=== PATIENT | female | born 1930 | race Caucasian/White ===

== ENCOUNTER 2018-01-10 00:51 | Inpatient (IN) | payer BC, MEDICARE ==
--- NOTE | 2018-01-10 01:03 | ERNOTE ---
Hip Pain HPI - Narrative Date of Service: 01/10/18 - General Chief Complaints:: Right Hip PAIN Time Seen by Provider: 01/10/18 00:58 Source: patient, family - History of Present Illness Initial Comments: Patient is a 87-year-old female who presents to the emergency room complaining of right hip pain. Apparently she was feeding her bird when she slipped and fell on her right side hit right hip on the floor. She had difficulty ambulating afterwards afterwards so ambulance was called Timing/Duration: just prior to arrival, constant Hip Pain Location: hip (R) Method of Injury/Prior Injury: fell Associated Symptoms: denies symptoms - Immun/Allergies/Home Medications Allergies/Adverse Reactions: Allergies Allergy/AdvReac Type Severity Reaction Status Date / Time No Known Drug Allergies Allergy Verified 01/19/18 07:48 Home Medications: Ambulatory Orders Medication Instructions Recorded Glucosamine HCl 1,500 mg PO BID 12/12/13 Indapamide [Lozol] 2.5 mg PO DAILY 12/12/13 Potassium Chloride [Klor-Con 10] 10 meq PO BID 12/12/13 Meclizine HCl [Antivert] 25 mg PO QID #0 tab 12/13/13 Metoprolol Tartrate 50 mg PO BID 01/10/18 Multivitamin [One Daily Essential] 1 ea PO DAILY 01/10/18 Acetaminophen [Tylenol] 1,000 mg PO Q6H PRN #30 tab 01/13/18 Enoxaparin Sodium [Lovenox] 40 mg SC Q24H #28 disp.syrin 01/13/18 Sennosides/Docusate Sodium 2 tab PO HS tab 01/13/18 [Senokot-S] hydrocodone 5 mg-acetaminophen 325 1 tab PO Q4H PRN 30 Days #20 tab 01/18/18 mg tablet alprazolam 0.25 mg tablet 0.25 mg PO TID tab 01/19/18 aspirin 81 mg tablet,delayed 81 mg PO DAILY 01/19/18 release Review of Systems - Review of Systems All Other Systems: All systems neg except as marked Pain Exam - Physical Exam General Appearance: Present: WD/WN, no apparent distress Neck Exam: Present: non-tender, full range of motion, normal alignment Cardiovascular/Respiratory: Present: regular rate, rhythm, no M/R/G, normal peripheral pulses Gastrointestinal/Abdominal: Present: normal bowel sounds Back Exam: Present: normal inspection, no CVA tenderness, no vertebral tenderness Extremity Exam: Present: no evidence of injury, other - inspection of the right LOWER extremity is unremarkable for any deformity. Palpation of the posterior aspect of the right hip is significant for pain. She appears to have difficulty with flexion of the right hip. Log rolling is uncomfortable to painful. Neurologic: Present: enamel burner II-XII nml as tested, no motor/sensory deficits, alert , normal mood/affect, oriented x 3 Skin Exam: Present: normal color ED Progress - PROGRESS/REASSESSMENT Chief Complaint: Hip Pain/Injury Progress Note-Subjective: 01/10/18 02:39 CT scan of the right lower extremity reviewed. Dr. Hoff who recommended having the patient admitted by medicine and have him Dr. Ruiz consulted in the morning Will Plan on bringing the patient and felt admission - VITAL SIGNS Patient's Vital Signs:: I have reviewed the patient's vital signs. - RESULTS AND ORDERS Patient's Lab Results:: I have reviewed the patient's lab results. - CT/ULTRASOUND CT/Ultrasound Narrative: CT of the hip without IV contrast is consistent with acute simple right intertrochanteric fracture with mild intrafragment displacement - TRANSFER OF CARE Expected Disposition: Admit Departure - Departure Clinical Impression: Closed right hip fracture Qualifiers: Encounter type: subsequent encounter Disposition: Still a patient Condition: Stable
[2018-01-10] MEDS ORDERED: ceFAZolin SODIUM 1 GM VIAL IV PRN (06:00)
[2018-01-10] MEDS ORDERED: MORPHINE SULFATE 2 MG/ML DISP.SYRIN IV PRN ×2 (07:32→14:59)
--- NOTE | 2018-01-10 07:40 | CONS ---
HPI - General Date of Service: 01/10/18 Narrative: Joyce is an 87 yo F who lives independently at home who slipped and fell last night while feeding her birds. She landed directly on her R hip and was unable to bear weight. She was brought to the ED where CT scan revealed a right intertrochanteric femur fracture. She was admitted to the hospital and Orthopedics was consulted for management of her hip fracture. She complains of right hip and right shoulder pain this morning. She denies hitting her head or LOC. She denies chest pain or shortness of breath. Source: patient - History of Present Illness Allergies/Adverse Reactions: Allergies No Known Drug Allergies Allergy (Verified 12/12/13 13:23) Home Medications: Home Medications Medication Instructions Recorded Last Taken Acetaminophen [Tylenol] 1,000 mg PO TID 12/12/13 12/12/13 09:00 Aspirin 325 mg PO DAILY 12/12/13 01/09/18 Glucosamine HCl 1,500 mg PO BID 12/12/13 12/12/13 09:00 Indapamide [Lozol] 2.5 mg PO DAILY 12/12/13 01/09/18 Potassium Chloride [Klor-Con 10] 10 meq PO BID 12/12/13 01/09/18 Meclizine HCl [Antivert] 25 mg PO QID #0 tablet 12/13/13 01/09/18 Metoprolol Tartrate 50 mg PO BID 01/10/18 01/09/18 Multivitamin [One Daily Essential] 1 each PO DAILY 01/10/18 01/09/18 Procedures Cholecystectomy (03/02/07) Discission of secondary membrane [after cataract] (01/10/12) Esophagogastroduodenoscopy [EGD] with closed biopsy (05/28/03) Insertion of intraocular lens prosthesis at time of cataract extraction, one- stage (12/15/10) Intraoperative cholangiogram (03/02/07) Nonexcisional debridement of wound, infection or burn (04/07/07) Other dilation and curettage (06/07/01) Phacoemulsification and aspiration of cataract (12/15/10) Review of Systems - Review of Systems Narrative: As per HPI, otherwise negative. Physical Examination - Exam Narrative: Gen: A&Ox3, NAD Resp: breathing non-labored on room air MSK: tenderness diffusely about right hip, severe pain with any attempted ROM, no significant shortening or malrotation, SILT, distal cap refill brisk. CT scan reviewed which demonstrates a minimally displaced intertrochanteric femur fracture on the right. Vital Signs: Vital Signs - Last Taken Temp 37.1 C 01/10/18 06:45 Pulse 78 01/10/18 06:45 Resp 14 01/10/18 06:45 BP 152/76 H 01/10/18 06:45 Pulse Ox 97 01/10/18 06:45 O2 Oxygen Delivery Method Room Air - Results and Findings: Narrative: 87 yo F w/ right intertrochanteric femur fracture after a fall at home. - discussed treatment options with the patient including non-operative management with protected weight bearing and pain control vs surgical fixation. Given her activity level, relatively good health, and the high risk of morbidity/mortality associated with bedrest, I recommended surgical fixation with a cephalomedullary nail. I discussed the risks of surgery in detail with her including, but not limited to, infection, bleeding, neurovascular injury, malunion/nonunion, leg length discrepancy, malrotation, persistent pain, weakness, DVT/PE, and risks with anesthesia. After discussion, she wishes to proceed with surgery. - plan for closed vs open reduction with cephalomedullary nailing of R intertrochanteric femur fracture today pending Medicine clearance. - informed consent obtained - NPO - thorpe catheter - IV pain meds - pre-op plain films ordered - Assessments/Findings (1) Closed right hip fracture Problem: Acute Qualifiers: Encounter type: initial encounter Qualified Code(s): S72.001A - Fracture of unspecified part of neck of right femur, initial encounter for closed fracture
--- NOTE | 2018-01-10 08:00 | HP ---
Chief Complaint - Chief Complaint Date of Service: 01/10/18 Time of Service: 07:50 Chief Complaint: fall and right hi pain History of Present Illness: Joyce Mitchell, is an 87-year-old white female, patient of Dr. West, with previous medical history of hypertension breast cancer osteoporosis, who was admitted on 01/10/2018 because of the fall and a right hip pain. The patient was feeding her Birds/fish and when she turned around she almost stepped on her cat . She was tried to avoid stepping and so she lost her balance and fell on her right hip. She was not able to stand up because of pain. She also is complaining of right shoulder pain after the fall. She was brought to our emergency room where she was found to have a right intertrochanteric fracture. She denies any chest pain, shortness or breath, palpitation while climbing a flight of stairs. She denies any fever or chills, coughing, increased frequency of urination, or dysuria. She has had no anesthesia or postsurgical complications from her prior surgeries. Has had no history of DVT or pulmonary embolism in the past. Medical History (Last Reviewed 01/10/18 @ 10:45 by Armaan Lambert CRNA) Breast cancer Hypertension Osteoporosis Tuberculosis Surgical History: Surgical History (Last Reviewed 01/10/18 @ 10:45 by Armaan Lambert CRNA) H/O dilation and curettage H/O hernia repair H/O lumpectomy History of YAG laser capsulotomy of lens of left eye Hx of cholecystectomy History of appendectomy Social History: Patient Lives/Resources Home Utilized Occupation Retired Preferred Language Turkmen Do you have any pentecostalism or No cultural preference? Smoking Status Former smoker Have you smoked in the past 12 No months Do you dip or chew tobacco No Alcohol Use none Drug Use none Review Of Systems (GEN) - Review of Systems Generalized/Overall Review: Absent: Chills, Fever Respiratory: Absent: Cough, Shortness of Breath Cardiac: Absent: Chest Pain, Edema, Palpitations Abdominal: Absent: Nausea, Vomiting Genitourinary: Absent: Urgency, Frequency Musculoskeletal: Present: Joint Pain Neurological: Absent: Headache, Seizure Immunizations: IMMUNIZATION HX Immunizations Up to Date Yes History of Influenza Vaccine Yes Allergies/Adverse Reactions: Allergies Allergy/AdvReac Type Severity Reaction Status Date / Time No Known Drug Allergies Allergy Verified 12/12/13 13:23 Home Medications: HOME MEDICATIONS Acetaminophen [Tylenol] 1,000 mg PO TID 12/12/13 [Last Taken 12/12/13 09:00] Aspirin 325 mg PO DAILY 12/12/13 [Last Taken 01/09/18] Glucosamine HCl 1,500 mg PO BID 12/12/13 [Last Taken 12/12/13 09:00] Indapamide [Lozol] 2.5 mg PO DAILY 12/12/13 [Last Taken 01/09/18] Potassium Chloride [Klor-Con 10] 10 meq PO BID 12/12/13 [Last Taken 01/09/18] Meclizine HCl [Antivert] 25 mg PO QID #0 tablet 12/13/13 [Last Taken 01/09/18] Metoprolol Tartrate 50 mg PO BID 01/10/18 [Last Taken 01/09/18] Multivitamin [One Daily Essential] 1 each PO DAILY 01/10/18 [Last Taken 01/09/18 ] Exam - Exam Vital Signs: Vital Signs - Last Taken Temp 37.1 C 01/10/18 06:45 Pulse 78 01/10/18 06:45 Resp 14 01/10/18 06:45 BP 152/76 H 01/10/18 06:45 Pulse Ox 97 01/10/18 06:45 Constitutional: Present: Alert, Oriented x3, Cooperative ENT Exam: Present: hearing grossly normal Eye Exam: bilateral eye: normal inspection, PERRL, EOMI Neck: Present: supple Respiratory: Present: normal breath sounds, No rales, No wheezing Cardiovascular/Chest: Present: regular rate, rhythm, no JVD, no murmur Abdomen: Present: Normal bowel sounds, soft, nontender, nondistended Extremity: Present: no pedal edema, no calf tenderness Assessment/Plan - Assessment/Plan (1) Closed right hip fracture Assessment: Nondisplaced intertrochanteri fracture- for CRIF today. She may proceed with the anticipated orthopedic procedure. Her EKG shgowed NSR with T wave changes. Problem: Acute Qualifiers: Encounter type: initial encounter Qualified Code(s): S72.001A - Fracture of unspecified part of neck of right femur, initial encounter for closed fracture (2) Shoulder pain, right Assessment: r/o rotator cuff pathology. will get a shoulder xray. Problem: Acute Qualifiers: Chronicity: acute Qualified Code(s): M25.511 - Pain in right shoulder (3) Hypertension Assessment: continue with her home medications. Problem: Chronic Qualifiers: Hypertension type: essential hypertension Qualified Code(s): I10 - Essential (primary) hypertension
[2018-01-10 08:36] LABS: Hematocrit 39.2 % (37.0-47.0); Hemoglobin 13.2 gm/dL (12.5-16.0); Mean Cell Volume 92.7 fl (78-100); Mean Corpuscular Hemoglobin 31.2 pg (27-31); Mean Corpuscular Hgb Conc 33.7 g/dl (32-36); Mean Platelet Volume 9.2 fl (8-12.5); Neutrophil # 9.4 K/mm3 (1.3-6.0); Neutrophil % 82.9 % (42-75.0); Platelet Count 207 K/mm3 (150-450); Red Blood Count 4.23 M/mm3 (4.2-5.4); Red Cell Distribution Width 11.6 % (11.5-14.0); White Blood Count 11.3 K/mm3 (4.0-10.5)
[2018-01-10] MEDS ORDERED: ONDANSETRON HCL/PF 2 MG/ML VIAL IV PRN ×2 (08:36→14:59)
[2018-01-10 08:46] LABS: Prothrombin Time (Patient) 10.4 Seconds (9.0-11.0)
[2018-01-10 08:47] LABS: INR 1.04 INR (0.90-1.10)
[2018-01-10 08:51] LABS: Albumin * 3.8 gm/dl (3.4-5.0); Anion Gap 9.9 mmol/L (6.8-13.8); BUN/Creatinine Ratio 24.1 (9.0-21.6); Bilirubin, Total 0.7 mg/dL (0.0-1.1); Ca. Corrected For Albumin 9.6 mg/dL (8.4-10.2); Calcium * 9.8 mg/dL (7.9-10.9); Potassium 2.9 mmol/L (3.4-4.6); Total Protein 7.6 gm/dL (6.2-8.2)
[2018-01-10] MEDS: METOPROLOL TARTRATE 50 MG TABLET PO SCH ×2 (09:59→21:28)
--- NOTE | 2018-01-10 10:49 | ANES ---
Anesthesia Pre Procedure Eval Vitals/Labs: Last Vital Signs Temp 36.6 C 01/10/18 10:33 Pulse 73 01/10/18 10:33 Resp 13 01/10/18 10:33 BP 138/67 01/10/18 10:33 Pulse Ox 95 01/10/18 10:33 HOME MEDICATIONS Acetaminophen [Tylenol] 1,000 mg PO TID 12/12/13 [Last Taken 12/12/13 09:00] Aspirin 325 mg PO DAILY 12/12/13 [Last Taken 01/09/18] Glucosamine HCl 1,500 mg PO BID 12/12/13 [Last Taken 12/12/13 09:00] Indapamide [Lozol] 2.5 mg PO DAILY 12/12/13 [Last Taken 01/09/18] Potassium Chloride [Klor-Con 10] 10 meq PO BID 12/12/13 [Last Taken 01/09/18] Meclizine HCl [Antivert] 25 mg PO QID #0 tablet 12/13/13 [Last Taken 01/09/18] Metoprolol Tartrate 50 mg PO BID 01/10/18 [Last Taken 01/09/18] Multivitamin [One Daily Essential] 1 each PO DAILY 01/10/18 [Last Taken 01/09/18 ] Allergies/Adverse Reactions: Allergies Allergy/AdvReac Type Severity Reaction Status Date / Time No Known Drug Allergies Allergy Verified 12/12/13 13:23 - Planned Procedure Planned Procedure: RIGHT INTERTRONCHANTERIC FRACTURE Medication List Reviewed:: Yes Allergies Verified: Yes Medical History (Last Reviewed 01/10/18 @ 10:45 by Armaan Lambert CRNA) Breast cancer Hypertension Osteoporosis Tuberculosis Surgical History (Last Reviewed 01/10/18 @ 10:45 by Armaan Lambert CRNA) H/O dilation and curettage H/O hernia repair H/O lumpectomy History of YAG laser capsulotomy of lens of left eye Hx of cholecystectomy History of appendectomy - Family Anesthesia History Family History:: no untoward family reactions to anesthesia, no familial bleeding tendencies, no family history of clotting disorders, no family history of premature - Airway/Neck/Teeth Denture Type: Full- Upper Neck Exam: non-tender, full range of motion, normal alignment Mallampatti Score: 1 Thyromental (T-M) distance: > 6 cm Mandibulo Hyoid distance: > 3 cm - Respiratory Respiratory: chest non-tender, lungs clear, normal breath sounds Smoking Status: Never smoker Sleep Apnea currently treated: No Sleep Apnea by current assessment: No - Cardiovascular Patient History - Cardiac/Respiratory: Hypertension Tolerates Activity: Fair Heart Sounds: S1 & S2, Regular - Anesthesia Assessment and Plan ASA Class: PS, III Anesthesia Type Plan: Spinal Planned difficult intubation/equipment available: No
[2018-01-10] MEDS ORDERED: ceFAZolin SODIUM 1 GM in DEXTROSE 5 % IN WATER 100 ML IV ONE ×2 (13:23)
[2018-01-10] MEDS: RINGER'S SOLUTION,LACTATED 1,000 ML IV PRN ×2 (13:40→15:00)
[2018-01-10] MEDS ORDERED: ACETAMINOPHEN 500 MG TABLET PO PRN (14:59)
[2018-01-10] MEDS ORDERED: MAGNESIUM HYDROXIDE 30 ML UDC PO PRN (14:59)
[2018-01-10] MEDS ORDERED: MAG HYDROX/ALUMINUM HYD/SIMETH 30 ML UDC PO PRN (14:59)
--- NOTE | 2018-01-10 15:10 | OR ---
Operative Report - Dictated Report Narrative: Date: 01/10/2018 Surgeon: Masoud Phipps M.D. [employer] Unit Sales Leader: Demarco Rodriguez PA-C Preoperative diagnosis: Right Intertrochanteric femur fracture Postoperative diagnosis: Right Intertrochanteric femur fracture Operations and procedures: 1. Closed reduction, cephalo-medullary fixation right intertrochanteric femur fracture 2. Intraoperative interpretation of radiographs Anesthesia: Spinal Specimens: None Estimated blood loss: 200 Milliliters Retained implants: [employer] Trigen InterTAN 130 degree size 11.5 mm by 20 centimeter nail with 105 millimeter lag screw and distal locking screw Complications: None Indications for procedure: Joyce is an 87-year-old female who lives independently who injured the right leg after after tripping and falling at home trying to avoid stepping on her cat. They were admitted to the hospital after being evaluated in the emergency department. Once the medical provider felt that they were stable for surgical treatment, the risks and benefits alternatives were discussed. The risks of , blood clots, bleeding, infection, nerve/tendon/blood vessel injury, malunion, nonunion, failure of implants, painful implants, arthrosis, and need for additional procedures were discussed. The extremity was marked and consent was obtained on the floor. Procedure: After marking the operative extremity on the floor, the patient was taken to the operating room. A timeout was performed. IV antibiotics consisting of 1 g of Ancef were administered. A spinal anesthetic was induced by anesthesia, and the patient was then placed onto a fracture table with a well-padded perineal post. The non-operative leg was placed in a well-padded well leg watson in lithotomy position with an SCD on the leg. The operative leg was placed in a well-padded traction boot. Longitudinal traction, internal rotation, flexion, and adduction were utilized in order to reduce the fracture. Preliminary images were attained utilizing C-arm in both the AP and lateral views. This confirmed that we had obtained adequate visualization of the fracture as well as reduction. Next the hip was then prepped and draped in a standard sterile fashion. Next, the guidewire was placed percutaneously proximal to the greater trochanter to lg a starting point at the tip of the greater trochanter centered on the lateral view. This was advanced down to the level below the lesser trochanter. A scalpel was utilized to dissect down to the greater trochanter in order to lace the soft tissue protector down to bone. The entry reamer was then advanced down the proximal femur to the level of the lesser trochanter. A long ball-tipped guidewire was advanced down the intramedullary canal. A series of reamers up to 13 mm was passed down the canal past the isthmus to ensure that we could fit a 11.5 mm nail. The above nail was then selected and impacted into place. The outrigger was utilized in order to confirm the appropriate depth of the nail. Using the alignment device on the outrigger, a govind incision was made over the lateral femur. Sharp dissection was carried through the iliotibial band down to the proximal femur. The guidewire was was placed into the femoral head in a center center position on AP and lateral views. A tip apex distance less than 25 mm combined was obtained. Once we felt that we had placed the guidewire in the appropriate position, it was measured and drilled to the appropriate depth. The lag screw was then secured in place ensuring that we were within the confines of the bone. Once it was felt we had adequately stabilized the intertrochanteric fracture, the distal interlocking screw was placed in a static position confirmed to be the appropriate length and within the nail on both AP and lateral views. The nail was secured allowing for controlled compression and the outrigger was removed. The wounds were then thoroughly irrigated. Final images were obtained. The hip was placed through range of motion and showed no crepitance. The deep fascia was closed with 0 Vicryl, the subcutaneous tissue with 3-0 Vicryl, and the skin was closed with kym. Sterile dressings of Xeroform, 4 x 4s, and tegaderm were applied. All sponge, sharp, and instrument counts were correct prior to closing the wounds. The patient was then awoken and transferred to the postanesthesia care unit in stable condition.
--- NOTE | 2018-01-10 16:12 | ANES ---
Post Anesthesia Discharge - Transfer of Care Transfer of Care handoff given to nurse: Yes - Discharge from PACU Discharge from PACU when meets criteria: Yes - Discharge to ASU Discharge to ASU-no complications/pt stable: Yes
--- NOTE | 2018-01-10 16:12 | ANES ---
Post Anesthesia Assessment - Vital Signs Vitals: Last Vital Signs Temp 36.6 C 01/10/18 15:59 Pulse 67 01/10/18 15:59 Resp 16 01/10/18 15:59 BP 104/66 01/10/18 15:59 Pulse Ox 97 01/10/18 15:59 Airway Patency: Normal - Mental Status Level Of Consciousness: Awake - Pain Level Pain Score: 0 - N/V Assessment Nausea/Vomiting Presence: None Dehydration:: No
[2018-01-10] MEDS: HYDROcodone/ACETAMINOPHEN 1 EACH TABLET PO PRN (19:57)
[2018-01-10] MEDS: NORMAL SALINE 1,000 ML IV PRN (21:21)
[2018-01-10] MEDS: SENNOSIDES/DOCUSATE SODIUM 1 TAB TABLET PO SCH (21:26)
[2018-01-10] MEDS: ceFAZolin SODIUM 1 GM in DEXTROSE 5 % IN WATER 100 ML IV SCH ×2 (21:27)
[2018-01-11] MEDS: ceFAZolin SODIUM 1 GM in DEXTROSE 5 % IN WATER 100 ML IV SCH ×4 (05:15→13:50)
[2018-01-11] MEDS: HYDROcodone/ACETAMINOPHEN 1 EACH TABLET PO PRN ×3 (05:24→17:34)
[2018-01-11 05:32] LABS: Hematocrit 26.4 % (37.0-47.0); Hemoglobin 8.6 gm/dL (12.5-16.0); Mean Cell Volume 95.7 fl (78-100); Mean Corpuscular Hemoglobin 31.2 pg (27-31); Mean Corpuscular Hgb Conc 32.6 g/dl (32-36); Mean Platelet Volume 9.2 fl (8-12.5); Platelet Count 152 K/mm3 (150-450); Red Blood Count 2.76 M/mm3 (4.2-5.4); Red Cell Distribution Width 11.9 % (11.5-14.0); White Blood Count 9.5 K/mm3 (4.0-10.5)
[2018-01-11 05:41] LABS: Anion Gap 5.3 mmol/L (6.8-13.8); BUN/Creatinine Ratio 18.6 (9.0-21.6); Calcium * 8.5 mg/dL (7.9-10.9); Carbon Dioxide 32.6 mmol/L (24-32.6); Estimated Creat Clear 42.3; Potassium 2.9 mmol/L (3.4-4.6)
[2018-01-11] MEDS ORDERED: NORMAL SALINE 250 ML IV ONE (08:21)
[2018-01-11] MEDS: METOPROLOL TARTRATE 50 MG TABLET PO SCH ×2 (08:46→20:51)
--- NOTE | 2018-01-11 09:07 | PN ---
Subjective - Date and Time Seen Date: 01/11/18 Time: 08:30 Subjective Narrative: Patient reports no acute events. She states she has not been up out of bed. She states her pain will well controlled. Objective - Vitals Vitals: Last Vital Signs Temp 36.8 C 01/11/18 07:03 Pulse 98 01/11/18 08:46 Resp 16 01/11/18 07:03 BP 82/44 L 01/11/18 08:46 Pulse Ox 98 01/11/18 07:03 - Abnormal Lab Findings Abnormal Lab Findings: Abnormal Lab Results 01/11/18 01/11/18 Range/Units 05:15 05:15 RBC 2.76 L (4.2-5.4) M/mm3 Hgb 8.6 L (12.5-16.0) gm/dL Hct 26.4 L (37.0-47.0) % MCH 31.2 H (27-31) pg Potassium 2.9 L (3.4-4.6) mmol/L Anion Gap 5.3 L (6.8-13.8) mmol/L Random Glucose 128 H (70-110) mg/dL - Exam Constitutional: Present: Alert, Cooperative, No distress Respiratory: Present: no respiratory distress Extremity: Present: other - RUE--> bandages mild blood tinged, no significant changes from post-op, SILT, dorsal pedis pulse 2+, PF/DF 4+/5, mild ttp diffusely over right hip Eye contact: Present: cooperative Cauti Physician Documentation - Urinary Catheter Management Urethral (Loaiza) Date of Insertion: 01/10/18 Time of Insertion: 03:18 Date of Removal: 01/11/18 Time of Removal: 08:30 Assessment/Plan Plan Narrative: -87 y/o female post-op day#1 s/p cephalmedullary nailing of right intertrochanteric femur fracture - WBAT with assistance PRN - PT/OT progress as tolerated - PO diet as tolerated - PO pain medication PRN - Maintain post-op dressing in place, monitor drainage - DVT prophy: lovenox, SCDs in bed, latisha hose - Chronic medical conditions per medicine - Hgb 8.6 continue to monitor - Dispo: progress as tolerated, when all goal met and patient stable d/c to SNF - Problems/Diagnosis (1) Closed right hip fracture Problem: Acute Qualifiers: Encounter type: initial encounter Qualified Code(s): S72.001A - Fracture of unspecified part of neck of right femur, initial encounter for closed fracture
[2018-01-11] MEDS ORDERED: POTASSIUM CHLORIDE 20 MEQ TABLET.SA PO ONE (09:24)
--- NOTE | 2018-01-11 10:02 | PN ---
Subjective - Date and Time Seen Date: 01/11/18 Time: 09:57 Subjective Narrative: Joyce Mitchell, is postop day 1 status post closed reduction internal fixation of right intertrochanteric fracture. She denies any major complaint today. Objective - Review of Systems Generalized/Overall Review: Denies: Chills, Fever Respiratory: Denies: Cough, Shortness of Breath Cardiac: Denies: Chest Pain, Edema, Palpitations Abdominal: Denies: Nausea, Vomiting Genitourinary Symptoms: Denies: Urgency, Frequency Musculoskeletal Complaints: Reports: Joint Pain - controlled - Vitals Vitals: Last Vital Signs Temp 36.8 C 01/11/18 07:03 Pulse 98 01/11/18 08:46 Resp 16 01/11/18 07:03 BP 82/44 L 01/11/18 08:46 Pulse Ox 98 01/11/18 07:03 - Abnormal Lab Findings Abnormal Lab Findings: Abnormal Lab Results 01/11/18 01/11/18 Range/Units 05:15 05:15 RBC 2.76 L (4.2-5.4) M/mm3 Hgb 8.6 L (12.5-16.0) gm/dL Hct 26.4 L (37.0-47.0) % MCH 31.2 H (27-31) pg Potassium 2.9 L (3.4-4.6) mmol/L Anion Gap 5.3 L (6.8-13.8) mmol/L Random Glucose 128 H (70-110) mg/dL - Exam Constitutional: Present: Alert, Oriented x3, Cooperative, Elderly ENT Exam: Present: hearing grossly normal Respiratory: Present: decreased breath sounds, No rales, No wheezing Cardiovascular/Chest: Present: regular rate, rhythm, no JVD, no murmur Abdomen: Present: Normal bowel sounds, soft, nontender, nondistended Extremity: Present: no pedal edema, no calf tenderness Cauti Physician Documentation - Urinary Catheter Management Urethral (Loaiza) Date of Insertion: 01/10/18 Time of Insertion: 03:18 Date of Removal: 01/11/18 Time of Removal: 08:30 Assessment/Plan - Problems/Diagnosis (1) Closed right hip fracture Problem: Acute Qualifiers: Encounter type: subsequent encounter Narrative: s/p CRIF. afebrile. continue with PT/OT, anticoagulation (2) Shoulder pain, right Problem: Acute Qualifiers: Chronicity: acute Qualified Code(s): M25.511 - Pain in right shoulder Narrative: rotator cuff pathology (3) Hypertension Problem: Chronic Qualifiers: Hypertension type: essential hypertension Qualified Code(s): I10 - Essential (primary) hypertension Narrative: BP on th elow side this morning. BP m\medication held and IVF bolus given. (4) Acute blood loss anemia Problem: Acute Narrative: Hb 8.9 Will monitor.
[2018-01-11] MEDS: POTASSIUM CHLORIDE 20 MEQ TABLET.SA PO SCH ×2 (13:52→17:09)
[2018-01-11] MEDS: ENOXAPARIN SODIUM 40 MG/0.4 ML SYRG SC SCH (14:39)
[2018-01-11] MEDS: NORMAL SALINE 1,000 ML IV PRN (17:36)
[2018-01-11] MEDS: SENNOSIDES/DOCUSATE SODIUM 1 TAB TABLET PO SCH (20:51)
[2018-01-12] MEDS: HYDROcodone/ACETAMINOPHEN 1 EACH TABLET PO PRN ×4 (00:59→20:04)
[2018-01-12] MEDS: NORMAL SALINE 1,000 ML IV PRN ×2 (03:46→20:00)
[2018-01-12 05:24] LABS: Mean Cell Volume 96.1 fl (78-100); Mean Corpuscular Hemoglobin 31.6 pg (27-31); Mean Corpuscular Hgb Conc 32.9 g/dl (32-36); Mean Platelet Volume 9.5 fl (8-12.5); Platelet Count 139 K/mm3 (150-450); Red Blood Count 2.31 M/mm3 (4.2-5.4); White Blood Count 10.5 K/mm3 (4.0-10.5)
[2018-01-12 05:32] LABS: Anion Gap 6.4 mmol/L (6.8-13.8); BUN/Creatinine Ratio 12.3 (9.0-21.6); Calcium * 7.9 mg/dL (7.9-10.9); Carbon Dioxide 30.2 mmol/L (24-32.6); Estimated Creat Clear 55.9; Potassium 3.6 mmol/L (3.4-4.6)
[2018-01-12 05:47] LABS: Hematocrit 22.2 % (37.0-47.0); Hemoglobin 7.3 gm/dL (12.5-16.0)
[2018-01-12] MEDS ORDERED: FUROSEMIDE 10 MG/ML VIAL IV PRN ×2 (08:24→08:45)
--- NOTE | 2018-01-12 08:24 | PN ---
Subjective - Date and Time Seen Date: 01/12/18 Time: 08:19 Subjective Narrative: patient is eating breakfast. Hb is down to 7.3 from 13. Objective - Review of Systems Generalized/Overall Review: Reports: Fatigue. Denies: Chills, Fever Respiratory: Reports: Cough. Denies: Shortness of Breath Cardiac: Denies: Chest Pain, Edema, Palpitations Abdominal: Denies: Nausea, Vomiting, Abdominal Pain Genitourinary Symptoms: Denies: Urgency, Frequency Musculoskeletal Complaints: Reports: Joint Pain - controlled - Vitals Vitals: Last Vital Signs Temp 36.8 C 01/12/18 07:13 Pulse 83 01/12/18 07:13 Resp 18 01/12/18 07:13 BP 148/47 01/12/18 07:13 Pulse Ox 98 01/12/18 07:13 - Abnormal Lab Findings Abnormal Lab Findings: Abnormal Lab Results 01/12/18 01/12/18 Range/Units 05:22 05:22 RBC 2.31 L (4.2-5.4) M/mm3 Hgb 7.3 L* (12.5-16.0) gm/dL Hct 22.2 L* (37.0-47.0) % MCH 31.6 H (27-31) pg Plt Count 139 L (150-450) K/mm3 Anion Gap 6.4 L (6.8-13.8) mmol/L Random Glucose 112 H (70-110) mg/dL - Exam Constitutional: Present: Alert, Oriented x3, Cooperative ENT Exam: Present: hearing grossly normal Neck: Present: supple Respiratory: Present: decreased breath sounds, No rales, No wheezing Cardiovascular/Chest: Present: regular rate, rhythm, no JVD, no murmur Extremity: Present: no pedal edema, no calf tenderness Cauti Physician Documentation - Urinary Catheter Management Urethral (Loaiza) Date of Insertion: 01/10/18 Time of Insertion: 03:18 Date of Removal: 01/11/18 Time of Removal: 08:30 Assessment/Plan - Problems/Diagnosis (1) Closed right hip fracture Problem: Acute Qualifiers: Encounter type: subsequent encounter Narrative: POD # 2. afebrile. continue with PT/OT. (2) Shoulder pain, right Problem: Acute Qualifiers: Chronicity: acute Qualified Code(s): M25.511 - Pain in right shoulder (3) Hypertension Problem: Chronic Qualifiers: Hypertension type: essential hypertension Qualified Code(s): I10 - Essential (primary) hypertension (4) Acute blood loss anemia Problem: Acute Narrative: Hb is down to 7.3. will give 2 units PRBC.
[2018-01-12] MEDS ORDERED: NORMAL SALINE 200 ML IV ONE (08:38)
[2018-01-12 08:46] LABS: Iron 19 mcg/dL (35-120); Transferrin Sat. (% Sat.) 9 % (15-55)
[2018-01-12] MEDS: METOPROLOL TARTRATE 50 MG TABLET PO SCH ×2 (08:51→22:10)
[2018-01-12 09:15] LABS: Ferritin 135 ng/mL (8-252)
--- NOTE | 2018-01-12 09:58 | PN ---
Subjective - Date and Time Seen Date: 01/12/18 Time: 07:30 Subjective Narrative: Patient reports no acute events. She states she still have significant pain any WB. She notes she has only been up for transitions with help. Objective - Vitals Vitals: Last Vital Signs Temp 36.8 C 01/12/18 07:13 Pulse 82 01/12/18 08:51 Resp 18 01/12/18 07:13 BP 84/40 L 01/12/18 08:51 Pulse Ox 98 01/12/18 07:13 - Abnormal Lab Findings Abnormal Lab Findings: Abnormal Lab Results 01/12/18 01/12/18 01/12/18 Range/Units 05:22 05:22 05:22 RBC 2.31 L (4.2-5.4) M/mm3 Hgb 7.3 L* (12.5-16.0) gm/dL Hct 22.2 L* (37.0-47.0) % MCH 31.6 H (27-31) pg Plt Count 139 L (150-450) K/mm3 Anion Gap 6.4 L (6.8-13.8) mmol/L Random Glucose 112 H (70-110) mg/dL Iron 19 L (35-120) mcg/dL TIBC 220 L (260-445) mcg/dL Transferrin % Sat 9 L (15-55) % Vitamin B12 (193-986) pg/mL 01/12/18 Range/Units 05:22 RBC (4.2-5.4) M/mm3 Hgb (12.5-16.0) gm/dL Hct (37.0-47.0) % MCH (27-31) pg Plt Count (150-450) K/mm3 Anion Gap (6.8-13.8) mmol/L Random Glucose (70-110) mg/dL Iron (35-120) mcg/dL TIBC (260-445) mcg/dL Transferrin % Sat (15-55) % Vitamin B12 Greater than 2000 H (193-986) pg/mL - Exam Constitutional: Present: Alert, Cooperative, No distress Respiratory: Present: no respiratory distress Extremity: Present: other - RLE--> bandage intact with mild blood tingled fluid , no significant change previous films, SILT, 5/5 PF/DF, ttp over greater trochanter, pos tib pulse 2+ Cauti Physician Documentation - Urinary Catheter Management Urethral (Loaiza) Date of Insertion: 01/10/18 Time of Insertion: 03:18 Date of Removal: 01/11/18 Time of Removal: 08:30 Assessment/Plan Plan Narrative: -87 y/o female post-op day#2 s/p cephalmedullary nailing of right intertrochanteric femur fracture - WBAT with assistance PRN - PT/OT progress as tolerated - PO diet as tolerated - PO pain medication PRN - Maintain post-op dressing in place, monitor drainage - DVT prophy: lovenox, SCDs in bed, latisha fr[place] - Chronic medical conditions per medicine - Hgb 7.3, if symptomatic recommend considering blood transfusion - Dispo: progress as tolerated, when all goal met and patient stable d/c to SNF - Problems/Diagnosis (1) Closed right hip fracture Problem: Acute Qualifiers: Encounter type: subsequent encounter
[2018-01-12] MEDS: ENOXAPARIN SODIUM 40 MG/0.4 ML SYRG SC SCH (14:04)
[2018-01-12 18:18] LABS: Hematocrit 35.2 % (37.0-47.0); Hemoglobin 11.7 gm/dL (12.5-16.0)
[2018-01-12] MEDS: SENNOSIDES/DOCUSATE SODIUM 1 TAB TABLET PO SCH (22:10)
[2018-01-13] MEDS: NORMAL SALINE 1,000 ML IV PRN (06:04)
[2018-01-13] MEDS: HYDROcodone/ACETAMINOPHEN 1 EACH TABLET PO PRN (06:11)
[2018-01-13] MEDS: METOPROLOL TARTRATE 50 MG TABLET PO SCH (08:27)
--- NOTE | 2018-01-13 08:58 | PN ---
Progess Note - Interim Date: 01/13/18 Time: 08:15 Narrative: Patient reports no acute events. She does note that she has had some mild irritation with eating and drinking. Patient is actively eating and drinking well in the room, she states this is improving. Discussed if any acute changes occur to immediately contact nurse. Exam today reveals sensation intact light touch, 4+/5 knee extension and flexion, posterior tibialis pulse 2+, no significant change in dressings, bandages dry and intact. Discussed with nurse bandage change at this time before discharge. She will follow-up in 2 weeks with orthopedic outpatient clinic. She will be discharged to [facility] for further physical therapy. -87 y/o female post-op day#3 s/p cephalmedullary nailing of right intertrochanteric femur fracture - WBAT with assistance PRN - PT/OT progress as tolerated - PO diet as tolerated - PO pain medication PRN, Percocet 1-2 tabs every 4-6 hours p.o. as needed - Dressing change every 3 days, monitor for erythema, drainage - DVT prophy: lovenox 4 weeks followed by a 325 mg aspirin daily for 6 weeks, latisha fr[place] - Chronic medical conditions per medicine - Dispo: Discharge to [facility] 01/13/18 08:54
--- NOTE | 2018-01-13 09:06 | DS ---
(1) Closed right hip fracture Diagnosis(s): s/p CRIF Problem: Acute Qualifiers: Encounter type: subsequent encounter (2) Shoulder pain, right Problem: Acute Qualifiers: Chronicity: acute Qualified Code(s): M25.511 - Pain in right shoulder (3) Hypertension Problem: Chronic Qualifiers: Hypertension type: essential hypertension Qualified Code(s): I10 - Essential (primary) hypertension (4) Acute blood loss anemia Diagnosis(s): s/p BT Problem: Acute Description of Stay: Joyce Mitchell, is an 87-year-old white female, patient of Dr. West, with previous medical history of hypertension breast cancer osteoporosis, who was admitted on 01/10/2018 because of the fall and a right hip pain. The patient was feeding her Birds/fish and when she turned around she almost stepped on her cat . She was tried to avoid stepping and so she lost her balance and fell on her right hip. She was not able to stand up because of pain. She also is complaining of right shoulder pain after the fall. She was brought to our emergency room where she was found to have a right intertrochanteric fracture. She denies any chest pain, shortness or breath, palpitation while climbing a flight of stairs. She denied any fever or chills, coughing, increased frequency of urination, or dysuria. She has had no anesthesia or postsurgical complications from her prior surgeries. Has had no history of DVT or pulmonary embolism in the past. She underwent CRIF with cephalomedullary nail fixation and had PT/OT. She had acute blood loss anemia with hypotension and she recieved 2 units of PRBC. She has been having difficulty of swallowing and feels her food gets stuck on her esophagus. She did complain of dry mouth. She will go to [place] for PT/OT and will make her follow up with her PCP- Dr. West. Will schedule her a swallowing study on outpatient basis. Procedures Performed: see notes below List Procedures: CRIF with cephalomedullary internal fixation Results and Findings: Lab Pending Results 01/10/18 08:26: WBC 11.3 H, RBC 4.23, Hgb 13.2, Hct 39.2, MCV 92.7, MCH 31.2 H, MCHC 33.7, RDW 11.6, Plt Count 207, MPV 9.2, Immature Gran % (Auto) 0.40, Immature Gran # (Auto) 0.05 H, Neutrophils % 82.9 H, Lymphocytes % 10.5 L, Monocytes % 5.8, Eosinophils % 0.0, Basophils % 0.4, Nucleated RBC % 0.0, Neutrophils # 9.4 H, Lymphocytes # 1.19 L, Monocytes # 0.7, Eosinophils # 0.0, Absolute Basophils 0.1 01/10/18 08:26: Sodium 136, Plasma Sodium 136, Potassium 2.9 L, Chloride 98, Carbon Dioxide 31.0, Anion Gap 9.9, BUN 20, Creatinine 0.83, Est GFR (Non-Af Amer) 69, BUN/Creatinine Ratio 24.1 H, Random Glucose 126 H, Calcium 9.8, Calcium Adj for Albumin 9.6, Total Bilirubin 0.7, AST 26, ALT 25, Alkaline Phosphatase 67, Total Protein 7.6, Albumin 3.8 01/10/18 08:26: PT 10.4, INR (Anticoag Therapy) 1.04 01/10/18 08:26: Troponin I 0.040 01/10/18 08:26: Blood Type A Positive, Antibody Screen Negative, Crossmatch See Detail 01/11/18 05:15: WBC 9.5, RBC 2.76 L, Hgb 8.6 L, Hct 26.4 L, MCV 95.7, MCH 31.2 H , MCHC 32.6, RDW 11.9, Plt Count 152, MPV 9.2 01/11/18 05:15: Sodium 134, Plasma Sodium 134, Potassium 2.9 L, Chloride 99, Carbon Dioxide 32.6, Anion Gap 5.3 L, BUN 16, Creatinine 0.86, Est GFR (Non-Af Amer) 66, BUN/Creatinine Ratio 18.6, Random Glucose 128 H, Calcium 8.5 01/12/18 05:22: WBC 10.5, RBC 2.31 L, Hgb 7.3 L*, Hct 22.2 L*, MCV 96.1, MCH 31.6 H, MCHC 32.9, RDW 12.0, Plt Count 139 L, MPV 9.5 01/12/18 05:22: Sodium 133, Plasma Sodium 133, Potassium 3.6 D, Chloride 100, Carbon Dioxide 30.2, Anion Gap 6.4 L, BUN 8, Creatinine 0.65, Est GFR (Non-Af Amer) 92 D, BUN/Creatinine Ratio 12.3, Random Glucose 112 H, Calcium 7.9 01/12/18 05:22: Iron 19 L, TIBC 220 L, Transferrin % Sat 9 L 01/12/18 05:22: Ferritin 135, Vitamin B12 Greater than 2000 H, Folate Greater than 20.0 01/12/18 18:15: Hgb 11.7 L, Hct 35.2 L Discharge Location: [facility] Disposition: [facility] Condition: Stable Level of Care: SNF Discharge Activity: Weight bearing - as tolerated Discharge Diet: Low salt Alf Therapy: Physicial Therapy, Occupation Therapy Referrals: Ronnell West MD [Primary Care Provider] - Additional Patient Instructions (free text): Going to [facility]. PT and OT to evaluate and treat. Follow up Orthopedic appointment with Dr Phipps on Tuesday01/23/18 at 10:30. - WBAT with assistance PRN Follow up with Dr. West in 2 weeks Prescriptions (Any new or edited meds): Acetaminophen [Tylenol] 1,000 mg PO Q6H PRN #30 tablet PRN Reason: Mild Pain (Pain Scale 1-3) Enoxaparin Sodium [Lovenox] 40 mg SC Q24H #28 disp.syrin HYDROcodone/ACETAMINOPHEN [[place] 5-325] 1 ea PO Q4H PRN #20 tab PRN Reason: Moderate Pain (Pain Scale 4-6) Complete Home Medications List: Complete Home Medication List: Acetaminophen [Tylenol] 1,000 mg PO TID 12/12/13 Glucosamine HCl 1,500 mg PO BID 12/12/13 Indapamide [Lozol] 2.5 mg PO DAILY 12/12/13 Potassium Chloride [Klor-Con 10] 10 meq PO BID 12/12/13 Meclizine HCl [Antivert] 25 mg PO QID #0 tablet 12/13/13 Metoprolol Tartrate 50 mg PO BID 01/10/18 Multivitamin [One Daily Essential] 1 each PO DAILY 01/10/18 Acetaminophen [Tylenol] 1,000 mg PO Q6H PRN #30 tablet 01/13/18 Enoxaparin Sodium [Lovenox] 40 mg SC Q24H #28 disp.syrin 01/13/18 HYDROcodone/ACETAMINOPHEN [[place] 5-325] 1 ea PO Q4H PRN #20 tab 01/13/18 Sennosides/Docusate Sodium [Senokot-S] 2 tab PO HS tablet 01/13/18
[2018-01-13 10:26] VITALS: BP 110/53
== END 2018-01-13 10:52 | DRG 481 ==
LOC: ER 00:51 → MS 02:36
PROVIDERS: ADMIT Internal Medicine; ATTEND Internal Medicine
CPT/HCPCS: 36415; 51702; 71010; 71045; 72192; 73020; 73502; 73700; 76000; 80048; 80053; 82607; 82728; 82746; 83540; 83550; 84466; 84484; 85014; 85018; 85025; 85027; 85610; 86850; 86900; 93005; 97110; 97116; 97161; 97165; 97530; 97535; 99283; J2405; P9016